=== PATIENT | female | born 2000 | race Caucasian/White ===

== ENCOUNTER 2019-01-05 13:58 | Emergency (ER) | payer OTHER ==
--- NOTE | 2019-01-05 14:35 | ER Document Report ---
ED Medical Screen (RME) - General Chief Complaint: Abdominal Pain Stated Complaint: ABDOMINAL PAIN Time Seen by Provider: 01/05/19 14:33 Mode of Arrival: Ambulatory Information source: Patient Notes: Patient is an otherwise healthy 18-year-old female presented emergency department with left sided abdominal pain. Patient reports this started just a couple of hours prior to arrival. She reports she ate just prior to the pain starting. She states she went to an urgent care where they told her they thought that she needed an ultrasound for her gallbladder. Patient denies any epigastric or right upper quadrant pain. She did report mild nausea but no vomiting or diarrhea. Exam: Tenderness to palpation the left upper quadrant without guarding or rebound. I have greeted and performed a rapid initial assessment of this patient. A comprehensive ED assessment and evaluation of the patient, analysis of test results and completion of the medical decision making process will be conducted by additional ED providers. I have specifically instructed the patient or family members with the patient to immediately return to any nursing staff should anything change in the patient's condition or with their chief complaint. This medical record was dictated with voice recognizing software. There may be grammatical, syntax errors that are unintended. TRAVEL OUTSIDE OF THE [place] IN LAST 30 DAYS: No - Related Data Allergies/Adverse Reactions: amoxicillin Allergy (Verified 01/05/19 14:03) Penicillins Allergy (Verified 01/05/19 14:03) Past Medical History - Social History Chew tobacco use (# tins/day): No Frequency of alcohol use: None Drug Abuse: None Renal/ Medical History: Denies: Hx Peritoneal Dialysis Psychiatric Medical History: Reports: Hx Attention Deficit Hyperactivity Disorder, Hx Depression - anxiety Past Surgical History: Reports: Hx Oral Surgery - wisdom Physical Exam - Vital signs Vitals: Temp Pulse Resp BP Pulse Ox 98.2 F 86 18 142/63 H 98 01/05/19 14:05 01/05/19 14:05 01/05/19 14:05 01/05/19 14:05 01/05/19 14:05 Course - Vital Signs Vital signs: Temp Pulse Resp BP Pulse Ox 98.2 F 86 18 142/63 H 98 01/05/19 14:05 01/05/19 14:05 01/05/19 14:05 01/05/19 14:05 01/05/19 14:05
[2019-01-05 15:00] LABS: ABSOLUTE LYMPHOCYTES (AUTO) 2.2 10^3/uL (0.5-4.7); ABSOLUTE MONOCYTES (AUTO) 0.5 10^3/uL (0.1-1.4); ABSOLUTE NEUT (AUTO) 4.8 10^3/uL (1.7-8.2); BASOPHILS % (AUTO) 0.3 % (0-2); EOSINOPHILS % (AUTO) 0.4 % (0-6); HEMATOCRIT 39.6 % (36.0-47.0); HEMOGLOBIN 13.3 g/dL (12.0-15.5); LYMPHOCYTES % (AUTO) 29.4 % (13-45); MEAN CORPUSCULAR HEMOGLOBIN 29.8 pg (27.0-33.4); MEAN CORPUSCULAR HGB CONC 33.5 g/dL (32.0-36.0); MEAN CORPUSCULAR VOLUME 89 fl (80-97); MONOCYTES % (AUTO) 6.1 % (3-13); PLATELET COUNT 371 10^3/uL (150-450); RED BLOOD COUNT 4.46 10^6/uL (3.72-5.28); RED CELL DISTRIBUTION WIDTH 12.6 % (11.5-14.0); SEGMENTED NEUTROPHILS % (AUTO) 63.8 % (42-78); TOTAL CELLS COUNTED % (AUTO) 100 %; WHITE BLOOD COUNT 7.5 10^3/uL (4.0-10.5)
[2019-01-05 15:04] LABS: APPEARANCE,URINE SLIGHTLY-CLOUDY; BILIRUBIN,URINE NEGATIVE (NEGATIVE); COLOR,URINE YELLOW; GLUCOSE, URINE NEGATIVE (NEGATIVE); KETONES,URINE NEGATIVE (NEGATIVE); LEUKOCYTE ESTERASE,URINE NEGATIVE (NEGATIVE); NITRITE,URINE NEGATIVE (NEGATIVE); PROTEIN,URINE NEGATIVE (NEGATIVE); URINE SPECIFIC GRAVITY 1.024; UROBILINOGEN,URINE NEGATIVE mg/dL (<2.0)
[2019-01-05 15:26] LABS: ALANINE AMINOTRANSFERASE 18 U/L (9-52); ALKALINE PHOSPHATASE 57 U/L (38-126); ANION GAP 9 (5-19); ASPARTATE AMINO TRANSFERASE 27 U/L (14-36); BILIRUBIN,DIRECT 0.2 mg/dL (0.0-0.4); BILIRUBIN,TOTAL 0.3 mg/dL (0.2-1.3); BLOOD UREA NITROGEN 12 mg/dL (7-20); CALCIUM 10.1 mg/dL (8.4-10.2); CARBON DIOXIDE 30 mmol/L (22-30); CHLORIDE 102 mmol/L (98-107); GLUCOSE 117 mg/dL (75-110); LIPASE 89.7 U/L (23-300); POTASSIUM 4.5 mmol/L (3.6-5.0); SODIUM 141.4 mmol/L (137-145); TOTAL PROTEIN 8.3 g/dL (6.3-8.2)
[2019-01-05] MEDS ORDERED: NORMAL SALINE 1000 ML 1,000 ML IV ONE (15:36)
[2019-01-05] MEDS ORDERED: KETOROLAC TROMETHAMINE INJ/PF 30 MG/1 ML SDV IV ONE (15:36)
[2019-01-05] MEDS ORDERED: ONDANSETRON HCL INJ/PF 4 MG/2 ML SDV IV ONE (15:37)
--- NOTE | 2019-01-05 15:44 | ER Document Report ---
ED General - General Chief Complaint: Abdominal Pain Stated Complaint: ABDOMINAL PAIN Time Seen by Provider: 01/05/19 14:33 Mode of Arrival: Ambulatory TRAVEL OUTSIDE OF THE [place] IN LAST 30 DAYS: No - HPI Notes: 18-year-old female to the emergency department with complaints of left upper quadrant abdominal pain that started just prior to arrival after eating lunch at work. States that she ate a chicken sandwich and prior to being completely done with the sandwich she started to experience sharp stabbing pain in her left upper quadrant with associated nausea. She denies any fevers, chills, diarrhea, vomiting, chest pain, shortness of breath. She denies any blood in her urine or history of kidney stones. She states that the pain comes and goes. She has not taken anything for the pain. She did go to urgent care prior to coming to the emergency department and was told that she needed to be seen in the emergency department for further care. She was also told that this could be a gallbladder issue. She denies any right-sided upper abdominal pain, right flank pain, right shoulder pain. - Related Data Allergies/Adverse Reactions: amoxicillin Allergy (Verified 01/05/19 14:03) Penicillins Allergy (Verified 01/05/19 14:03) Past Medical History - General Information source: Patient - Social History Smoking Status: Never Smoker Chew tobacco use (# tins/day): No Frequency of alcohol use: Occasional Drug Abuse: None Family History: Reviewed & Not Pertinent Patient has suicidal ideation: No Patient has homicidal ideation: No Renal/ Medical History: Denies: Hx Peritoneal Dialysis Psychiatric Medical History: Reports: Hx Attention Deficit Hyperactivity Disorder, Hx Depression - anxiety Past Surgical History: Reports: Hx Oral Surgery - wisdom Review of Systems - Review of Systems Constitutional: denies: Chills, Fever EENT: No symptoms reported Cardiovascular: denies: Chest pain, Palpitations, Dizziness, Lightheaded Respiratory: denies: Cough, Short of breath Gastrointestinal: Abdominal pain, Nausea. denies: Diarrhea, Vomiting Genitourinary: denies: Frequency, Hematuria Musculoskeletal: denies: Back pain Skin: No symptoms reported Neurological/Psychological: No symptoms reported -: Yes All other systems reviewed and negative Physical Exam - Vital signs Vitals: Temp Pulse Resp BP Pulse Ox 98.2 F 86 18 142/63 H 98 01/05/19 14:05 01/05/19 14:05 01/05/19 14:05 01/05/19 14:05 01/05/19 14:05 Interpretation: Hypertensive - General General appearance: Appears well, Alert - HEENT Head: Normocephalic, Atraumatic Eyes: Normal Pupils: PERRL - Respiratory Respiratory status: No respiratory distress Chest status: Nontender Breath sounds: Normal Chest palpation: Normal - Cardiovascular Rhythm: Regular Heart sounds: Normal auscultation Murmur: No - Abdominal Inspection: Normal Distension: No: No distension Bowel sounds: Normal Tenderness: Tender - Mild tenderness to palpation over the left lateral mid abdomen. Abdomen is soft no CVA tenderness bilaterally. No tenderness to palpation to the right upper quadrant and right lower quadrant. Negative Hassan sign and negative McBurney's point. No guarding or rebound.. No: McBurney's point, Hassan's sign, Guarding, Rebound Organomegaly: No organomegaly - Back Back: Normal. No: CVA tenderness - Extremities General upper extremity: Normal inspection, Normal strength General lower extremity: Normal inspection, Normal strength - Neurological Neuro grossly intact: Yes Cognition: Normal Orientation: AAOx4 [place] Coma Scale Eye Opening: Spontaneous [place] Coma Scale Verbal: Oriented [place] Coma Scale Motor: Obeys Commands [place] Coma Scale Total: 15 Speech: Normal Motor strength normal: LUE, RUE, LLE, RLE Sensory: Normal - Psychological Associated symptoms: Normal affect, Normal mood - Skin Skin Temperature: Warm Skin Moisture: Dry Skin Color: Normal Course - Re-evaluation Re-evalutation: 01/05/19 17:17 Progress: Patient has done well in the emergency department today. Her labs are reassuringshe has no leukocytosis, no electrode changes, kidney function is within normal limits, she does not have a urinary tract infection, she is not . Reexam of her abdomen illustrates a soft nontender abdomen. She has not been vomiting here in the emergency department. Her KUB is also reassuring for no acute obstructive bowel pattern. Noted mild gas. She has been tolerating Lorrie mist here in the emergency department without any further pain, nausea, vomiting. We will plan to send home. Patient agrees with the plan. Impression: Left upper quadrant abdominal pain, nausea. Will follow the treatment plan as outlined above. Have urged patient to return if she has intractable nausea and vomiting, worsening pain, fever, bloody diarrhea, bloody emesis, syncope, chest pain, shortness of breath. We will have her follow with her primary care physician. We will send home with Michelle. She is agrees with plan. - Vital Signs Vital signs: Temp Pulse Resp BP Pulse Ox 98.2 F 86 18 142/63 H 98 01/05/19 14:05 01/05/19 14:05 01/05/19 14:05 01/05/19 14:05 01/05/19 14:05 - Laboratory Result Diagrams: 01/05/19 14:43 01/05/19 14:43 Laboratory results interpreted by me: 01/05/19 14:43 Glucose 117 H Total Protein 8.3 H Discharge - Discharge Clinical Impression: Abdominal pain, left upper quadrant, Nausea Condition: Stable Disposition: HOME, SELF-CARE Instructions: Abdominal Pain ([facility]) Additional Instructions: ABDOMINAL PAIN: There are many causes of abdominal pain. Pain can mean a serious problem requiring surgery (such as appendicitis). It can also be an innocent problem that goes away on its own (such as a viral infection). Often, time must pass to determine the cause of pain. The physician medical receptionist medical assistant does not feel that hospitalization is necessary, at present. Things may change within the next 24 hours. Call the doctor or come back for re-examination if any problems occur, such as: (1) Pain that becomes more severe, steady, or becomes concentrated in one specific area. Also, pain that is more severe with movement or coughing. (2) Vomiting that persists or becomes more frequent. (3) Blood in the vomitus, urine, or bowel movements. Blood in the stool may have a tarry or black appearance. (4) Shaking chills or fever greater than 100 degrees F. (5) The abdomen becomes more distended or swollen. (6) Bowel movements cease. (7) Failure to improve as expected. NORMAL EXAM AND WORKUP: At this time, your examination and workup show no significant abnormality. No significant abnormal physical findings are noted. All laboratory, EKG, and i maging (x-ray, CT scans, ultrasound) studies that were ordered show no significant abnormality. Although your examination and all studies that were ordered showed no significant abnormal finding, there are no examinations and no studies that are 100% accurate. There is always the possibility that some abnormality could exist and not be detected with physical examination or within the limits and capabilities of laboratory and other studies. You should return or follow up as you were instructed on your visit today for further evaluation if your symptoms do not resolve. TORADOL INJECTION: You have been given an injection of ketorolac tromethamine (Toradol). This is an excellent, safe drug for pain control. It also has potent antiinflammatory action. You should have significant pain relief within about one hour. Toradol is not addicting and is non-sedating. It does not interfere with driving or work. Call or return if you develop itching, hives, shortness of breath, or rash. ANTINAUSEA MEDICATION: You have been given a medication to suppress nausea and vomiting. This type of medication can be given as a shot, pill, or suppository. It will usually last for many hours. Pills and shots usually last six to eight hours, suppositories last about 12 hours. For the typical illness, only one or two doses of the medication may be necessary. Mild lightheadedness may occur. This type of medicine can cause drowsiness. Do not drive or operate dangerous machinery while under its influence. Do not mix with alcohol. See your doctor at once if you have muscle spasms or tightness, or uncontrollable motions (particularly of the neck, mouth, or jaw). Persistent vomiting or severe lightheadedness should also be evaluated by the physician. FOLLOW-UP CARE: If you have been referred to a physician for follow-up care, call the physicians office for an appointment as you were instructed or within the next two days. If you experience worsening or a significant change in your symptoms, notify the physician immediately or return to the Emergency Department at any time for re-evaluation. FOLLOW-UP CARE: You should follow up with PCP for re-evaluation in 24 hours. This follow- up visit is important. Prescriptions: Naproxen [Naprosyn 375 Mg Tablet] 375 mg PO BID #20 tablet Ondansetron HCl [Zofran 4 mg Tablet] 1 - 2 tab PO Q4H PRN #10 tablet PRN Reason: Forms: Return to Work Referrals: DALLAS LOPEZ PA [Primary Care Provider] - Follow up tomorrow
--- NOTE | 2019-01-05 17:10 | RADIOLOGY REPORT (SQ) ---
EXAM DESCRIPTION: ABDOMEN 2 VIEWS COMPLETED DATE/TIME: 01/05/2019 4:52 pm REASON FOR STUDY: abd pain COMPARISON: None. NUMBER OF VIEWS: Two views. TECHNIQUE: Supine and erect/decubitus radiographic images of the abdomen acquired. LIMITATIONS: None. FINDINGS: FREE AIR: None. No abnormal gas collections. LUNG BASES: Clear. BOWEL GAS PATTERN: Nonobstructive pattern. No dilated loops or air fluid levels. CALCIFICATIONS: No suspicious calcifications. SOFT TISSUES: No gross mass or suggestion of organomegaly. HARDWARE: None in the abdomen. BONES: No acute fracture. No worrisome bone lesions. OTHER: No other significant finding. IMPRESSION: NO RADIOGRAPHIC EVIDENCE FOR ACUTE ABDOMINAL DISEASE. TECHNICAL DOCUMENTATION: JOB ID: [id number] [employer]- All Rights Reserved Reading location - IP/workstation name: [email or web address]
[2019-01-05 17:29] VITALS: BP 120/65
== END 2019-01-05 17:38 | disposition home or self-care (01) ==
LOC: ER 13:58
DX: R10.12 Left upper quadrant pain (principal); R11.0 Nausea; Z88.0 Allergy status to penicillin
CPT/HCPCS: 96361; 99284; 96374; 96375; 36415; 83690; 85025; 81025; 80053; 81001; 74019; J1885; J2405; J7030

== ENCOUNTER 2019-11-22 12:10 | Emergency (ER) | payer OTHER ==
[2019-11-22] MEDS ORDERED: ONDANSETRON 4 MG TAB.RAPDIS PO ONE (12:51)
[2019-11-22] MEDS ORDERED: ACETAMINOPHEN 325 MG TABLET PO ONE (12:51)
--- NOTE | 2019-11-22 12:57 | ER Document Report ---
ED General - General Chief Complaint: Chest Pain Stated Complaint: FEVER Time Seen by Provider: 11/22/19 12:34 Primary Care Provider: DALLAS SMILEY PA-C [PHYSICIAN IT INFRASTRUCTURE MANAGER] - Follow up as needed Notes: Patient is a 19-year-old female who presents the emergency department with a chief complaint of malaise, nausea and a small amount of vomiting, and chest pains. TRAVEL OUTSIDE OF THE [place] IN LAST 30 DAYS: No - Related Data Allergies/Adverse Reactions: amoxicillin Allergy (Verified 11/22/19 12:30) Penicillins Allergy (Verified 11/22/19 12:30) Home Medications: lexapro, lamictal, concerta Past Medical History - Social History Smoking Status: Never Smoker Chew tobacco use (# tins/day): No Frequency of alcohol use: None Drug Abuse: None Family History: Reviewed & Not Pertinent Patient has homicidal ideation: No Renal/ Medical History: Denies: Hx Peritoneal Dialysis Psychiatric Medical History: Reports: Hx Attention Deficit Hyperactivity Disorder, Hx Depression - anxiety Past Surgical History: Reports: Hx Oral Surgery - wisdom Review of Systems - Review of Systems Notes: REVIEW OF SYSTEMS: CONSTITUTIONAL : Denies recent illness. Denies recent unintentional weight loss. See HPI. EENT: Denies eye, ear, throat, or mouth pain, discharge, or symptoms. Denies nasal or sinus congestion. CARDIOVASCULAR: See HPI. RESPIRATORY: See HPI. GASTROINTESTINAL: Denies nausea, vomiting, and diarrhea. Denies abdominal pain. Denies constipation. GENITOURINARY: Denies difficulty urinating, burning, blood in urine, urgency or frequency. MUSCULOSKELETAL: Denies neck and back pain. Denies joint pain or swelling. SKIN: Denies rash, itchiness, or lesions HEMATOLOGIC : Denies easy bruising or bleeding. LYMPHATIC: Denies swollen, painful, enlarged glands. NEUROLOGICAL: Denies no numbness or tingling denies weakness. Denies headache. Denies altered mental status. Denies alteration in speech. PSYCHIATRIC: Denies stress, anxiety, alteration in sleep patterns, or depression. All other systems reviewed and negative. Physical Exam - Vital signs Vitals: Resp Pulse Ox 20 100 11/22/19 12:23 11/22/19 12:23 - Notes Notes: PHYSICAL EXAMINATION: GENERAL: Appears well, healthy, well-nourished, no acute distress. HEAD: Normocephalic, atraumatic. EYES: PERRL, conjunctiva normal, all extraocular movements intact, sclera nonicteric ENT: Moist mucous membranes. NECK: Supple, no noticeable swelling, redness, rash. Normal range of motion. LUNGS: Slightly coarse breath sounds noted in bilateral bases. CARDIOVASCULAR: S1-S2, regular rate, regular rhythm. Radial pulses 2+, normal. ABDOMEN: Normoactive bowel sounds. Soft, nontender, no guarding, no rebound tenderness, and no masses palpated. EXTREMITIES: Normal strength and range of motion, no pitting or edema. No cyanosis. NEUROLOGICAL: Moves all extremities upon command. Strength 5/5 in all extremities. PSYCH: Normal mood, normal affect. SKIN: Warm, dry. No rash, lesions, ulcerations noted. Normal skin turgor. Course - Re-evaluation Re-evalutation: 11/22/19 14:06 Patient's chest x-ray is unremarkable. No pneumonia noted. Patient states that she feels better after receiving Zofran and Tylenol. Instructions on how to take Tylenol and Zofran were given at bedside. Patient is in agreement with this plan. I will not retest her for COVID-19, as the patient is already being tested for COVID-19. She will follow-up with her primary care provider as needed. I have a low suspicion for any life-threatening etiology, such as ACS, pulmonary emboli, hemothorax, pneumothorax, or aortic dissection at this time. Vital signs are stable. Follow-up precautions were given. Verbal discharge instructions were given to the patient. They verbalized understanding. They are stable for discharge. - Vital Signs Vital signs: Temp Pulse Resp BP Pulse Ox 98.7 F 15 127/61 H 100 11/22/19 14:29 11/22/19 14:29 11/22/19 14:29 11/22/19 14:29 Discharge - Discharge Clinical Impression: Suspected COVID-19 virus infection Chest pain Qualifiers: Chest pain type: unspecified Qualified Code(s): R07.9 - Chest pain, unspecified Condition: Stable Disposition: HOME, SELF-CARE Additional Instructions: Your seen today in the emergency department for chest pain and generally not feeling well. Your chest x-ray is normal. Take Tylenol 1000 mg every 6 hours as needed for body aches or fever. You can also take Zofran for nausea or vomiting. Please wait for your COVID-19 results. Please make sure you are washing her hands frequently. Follow-up with your primary care provider in regards to this visit. Prescriptions: Ondansetron [Zofran Odt 4 mg Tablet] 1 - 2 tab PO Q4H PRN #30 tab.rapdis PRN Reason: For Nausea/Vomiting Referrals: DALLAS SMILEY PA-C [PHYSICIAN IT INFRASTRUCTURE MANAGER] - Follow up as needed
--- NOTE | 2019-11-22 13:37 | RADIOLOGY REPORT (SQ) ---
EXAM DESCRIPTION: CHEST SINGLE VIEW IMAGES COMPLETED DATE/TIME: 11/22/2019 1:27 pm REASON FOR STUDY: shortness of breath COMPARISON: None. EXAM PARAMETERS: NUMBER OF VIEWS: One view. TECHNIQUE: An AP view of the chest was obtained. RADIATION DOSE: NA LIMITATIONS: None. FINDINGS: LUNGS AND PLEURA: No consolidation, pleural effusion or pneumothorax. MEDIASTINUM AND HILAR STRUCTURES: No mediastinal or hilar contour abnormality. HEART AND VASCULAR STRUCTURES: The cardiac silhouette and pulmonary vasculature are within normal brown its. BONES: No acute findings. HARDWARE: None in the chest. OTHER: No other finding. IMPRESSION: No acute cardiopulmonary process. TECHNICAL DOCUMENTATION: JOB ID: [id number] [employer]- All Rights Reserved Reading location - IP/workstation name: [email or web address]
[2019-11-22 14:35] VITALS: BP 127/61
== END 2019-11-22 14:35 | disposition home or self-care (01) ==
LOC: ER 12:10
DX: R07.9 Chest pain, unspecified (principal); R53.81 Other malaise; R11.2 Nausea with vomiting, unspecified; F32.9 Major depressive disorder, single episode, unspecified; F41.9 Anxiety disorder, unspecified; F90.9 Attention-deficit hyperactivity disorder, unspecified type; Z79.899 Other long term (current) drug therapy; Z20.828 Contact with and (suspected) exposure to other viral communicable diseases; Z88.0 Allergy status to penicillin
CPT/HCPCS: 99283; 71045; S0119

== ENCOUNTER 2020-03-20 17:57 | Emergency (ER) | payer BC, OTHER ==
[2020-03-20] MEDS ORDERED: PROMETHAZINE HCL 25 MG TABLET PO ONE (18:42)
[2020-03-20] MEDS ORDERED: NORMAL SALINE 1000 ML 1,000 ML IV ONE (18:42)
[2020-03-20 19:21] LABS: ABSOLUTE LYMPHOCYTES (AUTO) 1.1 10^3/uL (0.5-4.7); ABSOLUTE MONOCYTES (AUTO) 0.3 10^3/uL (0.1-1.4); ABSOLUTE NEUT (AUTO) 13.6 10^3/uL (1.7-8.2); BASOPHILS % (AUTO) 0.1 % (0-2); HEMATOCRIT 38.5 % (36.0-47.0); HEMOGLOBIN 13.4 g/dL (12.0-15.5); LYMPHOCYTES % (AUTO) 7.2 % (13-45); MEAN CORPUSCULAR HEMOGLOBIN 29.9 pg (27.0-33.4); MEAN CORPUSCULAR HGB CONC 34.7 g/dL (32.0-36.0); MEAN CORPUSCULAR VOLUME 86 fl (80-97); MONOCYTES % (AUTO) 1.8 % (3-13); PLATELET COUNT 359 10^3/uL (150-450); RED BLOOD COUNT 4.46 10^6/uL (3.72-5.28); RED CELL DISTRIBUTION WIDTH 12.6 % (11.5-14.0); SEGMENTED NEUTROPHILS % (AUTO) 90.9 % (42-78); TOTAL CELLS COUNTED % (AUTO) 100 %
[2020-03-20 19:41] LABS: ALBUMIN 4.8 g/dL (3.5-5.0); ALKALINE PHOSPHATASE 90 U/L (38-126); ANION GAP 11 (5-19); ASPARTATE AMINO TRANSFERASE 23 U/L (14-36); BILIRUBIN,DIRECT 0.2 mg/dL (0.0-0.4); BILIRUBIN,TOTAL 0.5 mg/dL (0.2-1.3); BLOOD UREA NITROGEN 4 mg/dL (7-20); CALCIUM 9.8 mg/dL (8.4-10.2); CARBON DIOXIDE 23 mmol/L (22-30); CHLORIDE 104 mmol/L (98-107); GLUCOSE 121 mg/dL (75-110); TOTAL PROTEIN 7.8 g/dL (6.3-8.2)
--- NOTE | 2020-03-20 20:04 | ER Document Report ---
ED General - General Chief Complaint: Vomiting/Diarrhea Stated Complaint: VOMITING,NAUSEA,DIARRHEA Time Seen by Provider: 03/20/20 18:39 Primary Care Provider: JANNA ELLER MD [Primary Care Provider] - Follow up as needed TRAVEL OUTSIDE OF THE [place] IN LAST 30 DAYS: No - HPI Notes: 19-year-old female presents with nausea, vomiting and diarrhea. Patient reports daily nausea and vomiting every day for the past month. She states that she typically wakes up around 6 AM, she will have 1 hour of vomiting, then "is fine". She states she attributed this to her anxiety. She has been having diarrhea, described as soft stools, occasionally liquidy. No emesis in blood or stools. She states that her vomit is a yellow color. She denies abdominal pain. She states that today started off like her typical day, however the nausea vomiting has persisted throughout the entire day. She states that she went to an urgent care and "nothing was done" for her, on further discussion she states that she received Zofran, Phenergan and fluids. She denies possibly being . She denies dysuria. She denies drug or alcohol use. - Related Data Allergies/Adverse Reactions: amoxicillin Allergy (Verified 11/22/19 12:30) Penicillins Allergy (Verified 11/22/19 12:30) Past Medical History - General Information source: Patient - Social History Smoking Status: Unknown if Ever Smoked Family History: Reviewed & Not Pertinent Renal/ Medical History: Denies: Hx Peritoneal Dialysis Psychiatric Medical History: Reports: Hx Attention Deficit Hyperactivity Disorder, Hx Depression - anxiety Past Surgical History: Reports: Hx Oral Surgery - wisdom Review of Systems - Review of Systems Constitutional: denies: Chills, Fever EENT: No symptoms reported Cardiovascular: denies: Chest pain Respiratory: denies: Short of breath Gastrointestinal: Diarrhea, Nausea, Vomiting. denies: Abdominal pain, Blood streaked bowels, Blood in vomit Genitourinary: denies: Dysuria Musculoskeletal: No symptoms reported Skin: No symptoms reported Neurological/Psychological: Anxiety Physical Exam - Vital signs Vitals: Temp Pulse Resp BP Pulse Ox 99.2 F 106 H 18 147/74 H 100 03/20/20 18:48 03/20/20 18:48 03/20/20 18:48 03/20/20 18:48 03/20/20 18:48 - General General appearance: Appears well, Alert - HEENT Head: Normocephalic, Atraumatic Eyes: No: Scleral icterus Pupils: PERRL - Respiratory Breath sounds: Normal - Cardiovascular Rhythm: Regular Heart sounds: Normal auscultation Normal capillary refill: Yes - Abdominal Inspection: Normal Distension: No distension Bowel sounds: Normal Tenderness: Nontender - Extremities General upper extremity: Normal ROM General lower extremity: Normal ROM - Neurological Neuro grossly intact: Yes Cognition: Normal Orientation: AAOx4 - Psychological Associated symptoms: Anxious - Skin Skin Temperature: Warm Course - Re-evaluation Re-evalutation: 19-year-old female here with N/V/D ongoing for the past month, prolonged symptoms today. On exam she is nontoxic-appearing, afebrile, abdomen is soft and I do not appreciate focal area of tenderness. There is no jaundice. She do es appear to be anxious, question if this is contributing to her symptoms. Given that has been going on for 1 month, would have a low suspicion for acute infectious etiology. May be some sort of functional component. She received fluids and oral Phenergan through the triage process. Would have a low suspicion for biliary etiology, however will obtain right upper quadrant ultrasound to rule out cholelithiasis or common bile duct dilation. 03/20/20 21:07 Leukocytosis present, question if this is reactionary. No acute anemia. Electrolytes are within normal limits. Creatinine is within normal limits. No elevation of T bili, LFTs or lipase to suggest acute hepatobiliary pathology or pancreatitis at this time. is negative. Urine does have 3+ bacteria and small leuk esterase, nitrates are negative. Given that she denies urinary symptoms, will send for culture and she can be treated if culture is positive. Additionally has high ketones, D5 LR bolus ordered. 03/20/20 22:08 Right upper quadrant ultrasound negative per radiology 03/20/20 22:13 Into reassess patient, she reports she is feeling much better. She appears improved as well. Updated her on results so far. D5LR being hung now. 03/21/20 00:02 Fluids have finished. Patient reports still feeling good and is ready go home. Will prescribe Phenergan. Return precautions given, stable time of discharge. - Vital Signs Vital signs: Temp Pulse Resp BP Pulse Ox 99.2 F 100 18 120/72 98 03/20/20 23:40 03/20/20 23:40 03/20/20 23:40 03/20/20 23:40 03/20/20 23:40 - Laboratory Result Diagrams: 03/20/20 19:10 03/20/20 19:10 Laboratory results interpreted by me: 03/20/20 03/20/20 03/20/20 19:05 19:10 19:10 WBC 15.0 H Lymph % (Auto) 7.2 L [place] % (Auto) 1.8 L Absolute Neuts (auto) 13.6 H Seg Neutrophils % 90.9 H BUN 4 L Creatinine 0.49 L Glucose 121 H Urine Protein 30 H Urine Ketones 80 H Ur Leukocyte Esterase SMALL H Urine Ascorbic Acid 40 H - Diagnostic Test Radiology reviewed: Image reviewed, Reports reviewed Discharge - Discharge Clinical Impression: Nausea and vomiting Qualifiers: Vomiting type: unspecified Vomiting Intractability: non-intractable Qualified Code(s): R11.2 - Nausea with vomiting, unspecified Condition: Stable Disposition: HOME, SELF-CARE Instructions: Antinausea Medication ([facility]) Additional Instructions: Use Phenergan as needed for nausea. Diet as tolerated, try to drink plenty of fluids. Follow-up with your primary care doctor. Return to the emergency department for any concerning worsening symptoms. Prescriptions: Promethazine HCl [Phenergan 25 mg Tablet] 25 mg PO Q6H PRN #20 tablet PRN Reason: For Nausea/Vomiting Referrals: JANNA ELLER MD [Primary Care Provider] - Follow up as needed
[2020-03-20 20:32] LABS: APPEARANCE,URINE CLOUDY; BILIRUBIN,URINE NEGATIVE (NEGATIVE); COLOR,URINE YELLOW; GLUCOSE, URINE NEGATIVE (NEGATIVE); KETONES,URINE 80 mg/dL (NEGATIVE); LEUKOCYTE ESTERASE,URINE SMALL (NEGATIVE); NITRITE,URINE NEGATIVE (NEGATIVE); PROTEIN,URINE 30 mg/dL (NEGATIVE); URINE SPECIFIC GRAVITY 1.021; UROBILINOGEN,URINE NEGATIVE mg/dL (<2.0)
[2020-03-20] MEDS ORDERED: DEXTROSE 5%-LACTATED RINGERS 1,000 ML IV ONE (20:56)
--- NOTE | 2020-03-20 21:58 | RADIOLOGY REPORT (SQ) ---
US ABDOMEN LIMITED HISTORY: Right upper quadrant pain. COMPARISON: None. TECHNIQUE: Grayscale and color Doppler imaging of the right upper quadrant was performed. FINDINGS: There is increased echogenicity of the hepatic parenchyma, likely representing hepatic steatosis. The main portal vein has normal hepatopetal flow. No shadowing gallstones are seen. No pericholecystic fluid or gallbladder wall thickening. The common bile duct is normal caliber. The visualized portions of the pancreas are unremarkable. No hydronephrosis or shadowing renal stones are identified. The right kidney is normal in size. The visualized portions of the IVC and aorta are patent. IMPRESSION: 1. No gallstones or cholecystitis. 2. Hepatic steatosis.
[2020-03-20 22:07] LABS: URINE AMPHETAMINES SCREEN NEGATIVE; URINE BARBITURATES SCREEN NEGATIVE; URINE BENZODIAZEPINES SCREEN NEGATIVE; URINE COCAINE SCREEN NEGATIVE; URINE MARIJUANA (THC) SCREEN NEGATIVE; URINE METHADONE SCREEN NEGATIVE; URINE PHENCYCLIDINE SCREEN NEGATIVE
[2020-03-20 23:42] VITALS: BP 120/72
== END 2020-03-21 00:19 | disposition home or self-care (01) ==
LOC: ER 17:57
DX: R11.2 Nausea with vomiting, unspecified (principal); R19.7 Diarrhea, unspecified; Z88.0 Allergy status to penicillin
CPT/HCPCS: 99285; 96360; 96361; 36415; 87086; 83690; 84703; 85025; 80053; 81001; 80307; 76705; J7121; J7030

== ENCOUNTER 2020-07-04 17:56 | Observation (INO) | payer BC ==
--- NOTE | 2020-07-04 20:52 | ER Document Report ---
ED Medical Screen (RME) - General Chief Complaint: Abdominal Pain Stated Complaint: LOWER ABDOMINAL PAIN Time Seen by Provider: 07/04/20 20:43 Primary Care Provider: JANNA ELLER MD [Primary Care Provider] - Follow up as needed Mode of Arrival: Ambulatory Information source: Patient Notes: HPI; 20-year-old female presents to the emergency room complaining of sudden onset of lower pelvic pain that started earlier today. States she has a history of ovarian cyst feels similar to that. States she took some leftover Vicodin with relief of symptoms. Complains of nausea but no vomiting. States has had 2-3 episodes of diarrhea today. Denies any COVID-19 exposure. States she currently has an IUD. PE: Alert and oriented x3. Lungs: Clear to auscultation without rales, rhonchi, wheezes. Heart: Regular rate rhythm without murmurs, rubs, gallops. I have greeted and performed a rapid initial assessment of this patient. A comprehensive ED assessment and evaluation of the patient, analysis of test results and completion of the medical decision making process will be conducted by additional ED providers. I have specifically instructed the patient or fami ly members with the patient to immediately return to any nursing staff should anything change in the patient's condition or with their chief complaint. TRAVEL OUTSIDE OF THE [place] IN LAST 30 DAYS: No - Related Data Allergies/Adverse Reactions: amoxicillin Allergy (Verified 07/04/20 20:43) Penicillins Allergy (Verified 07/04/20 20:43) Home Medications: prozac Past Medical History - Social History Frequency of alcohol use: None Renal/ Medical History: Denies: Hx Peritoneal Dialysis Psychiatric Medical History: Reports: Hx Attention Deficit Hyperactivity Disorder, Hx Depression - anxiety Past Surgical History: Reports: Hx Oral Surgery - wisdom Physical Exam - Vital signs Vitals: Temp Pulse Resp BP Pulse Ox 98.8 F 93 16 117/43 L 100 07/04/20 18:23 07/04/20 18:23 07/04/20 18:23 07/04/20 18:23 07/04/20 18:23 Course - Vital Signs Vital signs: Temp Pulse Resp BP Pulse Ox 98.8 F 93 16 117/43 L 100 07/04/20 18:23 07/04/20 18:23 07/04/20 18:23 07/04/20 18:23 07/04/20 18:23 Doctor's Discharge - Discharge Referrals: JANNA ELLER MD [Primary Care Provider] - Follow up as needed
[2020-07-04 22:07] LABS: APPEARANCE,URINE CLEAR; BILIRUBIN,URINE NEGATIVE (NEGATIVE); COLOR,URINE YELLOW; GLUCOSE, URINE NEGATIVE (NEGATIVE); KETONES,URINE 80 mg/dL (NEGATIVE); LEUKOCYTE ESTERASE,URINE NEGATIVE (NEGATIVE); NITRITE,URINE NEGATIVE (NEGATIVE); PROTEIN,URINE NEGATIVE (NEGATIVE); UROBILINOGEN,URINE NEGATIVE mg/dL (<2.0)
[2020-07-04 22:11] LABS: ABSOLUTE LYMPHOCYTES (AUTO) 3.7 10^3/uL (0.5-4.7); ABSOLUTE MONOCYTES (AUTO) 0.6 10^3/uL (0.1-1.4); ABSOLUTE NEUT (AUTO) 10.7 10^3/uL (1.7-8.2); BASOPHILS % (AUTO) 0.3 % (0-2); EOSINOPHILS % (AUTO) 0.1 % (0-6); HEMATOCRIT 37.8 % (36.0-47.0); LYMPHOCYTES % (AUTO) 24.6 % (13-45); MEAN CORPUSCULAR HEMOGLOBIN 29.8 pg (27.0-33.4); MEAN CORPUSCULAR HGB CONC 34.5 g/dL (32.0-36.0); MEAN CORPUSCULAR VOLUME 86 fl (80-97); MONOCYTES % (AUTO) 4.2 % (3-13); PLATELET COUNT 394 10^3/uL (150-450); RED BLOOD COUNT 4.38 10^6/uL (3.72-5.28); RED CELL DISTRIBUTION WIDTH 12.7 % (11.5-14.0); SEGMENTED NEUTROPHILS % (AUTO) 70.8 % (42-78); TOTAL CELLS COUNTED % (AUTO) 100 %; WHITE BLOOD COUNT 15.1 10^3/uL (4.0-10.5)
[2020-07-04 22:30] LABS: ALBUMIN 4.7 g/dL (3.5-5.0); ALKALINE PHOSPHATASE 99 U/L (38-126); ANION GAP 10 (5-19); ASPARTATE AMINO TRANSFERASE 24 U/L (14-36); BILIRUBIN,DIRECT 0.2 mg/dL (0.0-0.4); BILIRUBIN,TOTAL 0.5 mg/dL (0.2-1.3); BLOOD UREA NITROGEN 5 mg/dL (7-20); CALCIUM 9.9 mg/dL (8.4-10.2); CARBON DIOXIDE 24 mmol/L (22-30); CHLORIDE 102 mmol/L (98-107); GLUCOSE 108 mg/dL (75-110); POTASSIUM 3.9 mmol/L (3.6-5.0)
--- NOTE | 2020-07-04 22:37 | RADIOLOGY REPORT (SQ) ---
Ultrasound pelvis transvaginal on 07/04/2020 at 9:29 PM CLINICAL INDICATION: Pelvic pain COMPARISON: None FINDINGS: Multiple sonographic images are obtained throughout the pelvis by transvaginal approach, both transverse and sagittal images are obtained. Uterus measures approximately 7.1 x 3.3 x 4.5 cm. Endometrial stripe measures 4 mm which is within normal limits. Intrauterine device is noted in good position in the endometrium. Uterine myometrium appears homogeneous. The right ovary measures approximately 3.1 x 2.6 x 2.1 cm. Flow is demonstrated in the right ovary. Left ovary measures approximately 2.5 x 1.6 x 1.7 cm. Flow is demonstrated in the left ovary. No adnexal mass or fluid collection is noted. IMPRESSION: Unremarkable exam.
[2020-07-05] MEDS ORDERED: NORMAL SALINE 1000 ML 1,000 ML IV ONE ×2 (01:42→08:27)
[2020-07-05] MEDS ORDERED: ONDANSETRON HCL INJ/PF 4 MG/2 ML SDV IV ONE ×2 (01:42→07:39)
[2020-07-05] MEDS ORDERED: MORPHINE SULFATE 10 MG/ML INJ IV ONE (01:42)
--- NOTE | 2020-07-05 01:50 | ER Document Report ---
ED GI/ - General Chief Complaint: Abdominal Pain Stated Complaint: LOWER ABDOMINAL PAIN Time Seen by Provider: 07/04/20 20:43 Mode of Arrival: Ambulatory Information source: Patient Notes: 20-year-old female presented to ED for complaint of right lower quadrant abdominal pain that started earlier today. She states she has a history of ovarian cyst but it does not feel exactly like an ovarian cyst. She states she took leftover Vicodin which usually gives her relief but this only gave her partial relief. She states she has had nausea but no vomiting but she has had several episodes of diarrhea. She denies any Covid symptoms. She states she does have an IUD. She was seen in triage blood urine and ultrasound were completed she does not have a right ovarian cyst. She does have an elevated white count. I have ordered her IV fluids Zofran and morphine IV. I have also ordered her IV fluids and a CT IV and oral contrasted of the abdomen and pelvis. Patient is agreeable with this plan. Constitutional: Negative for fever. HENT: Negative for sore throat. Eyes: Negative for visual changes. Cardiovascular: Negative for chest pain. Respiratory: Negative for shortness of breath. Gastrointestinal: Right lower quadrant pain with nausea no vomiting and 2 episodes of diarrhea Genitourinary: Negative for dysuria. Musculoskeletal: Negative for back pain. Skin: Negative for rash. Neurological: Negative for headaches, weakness or numbness. 10 point ROS negative except as marked above and in HPI. VITAL SIGNS: Within normal limits. GENERAL: No acute distress, non-toxic appearance. HEAD: Normal with no signs of head trauma. EYES: PERRLA, EOMI, conjunctiva normal, no discharge. EARS: Hearing grossly intact. NOSE: Normal. THROAT: Oropharynx is normal. NECK: Normal range of motion, no tenderness, supple, no lymphadenopathy, No adenopathy, no JVD. CHEST: Clear breath sounds bilaterally. No wheezes, rales, or rhonchi. CARDIAC: Regular rate and rhythm. S1 and S2, without murmurs, gallops, or rubs. VASCULAR: No Edema. Peripheral pulses normal and equal in all extremities. ABDOMEN: Soft with significant right lower quadrant tenderness. Active bowel sounds GASTROINTESTINAL: Bowel sounds normal GENITOURINARY: Normal, No tenderness LYMPATHTIC: No lymphadenopathy noted. MUSCULOSKELETAL: Good range of motion of all major joints. Extremities without clubbing, cyanosis or edema. NEUROLOGICAL: Alert and oriented x 3. No focal sensory or strength deficits. Speech normal. Follows commands appropriately. PSYCHIATRIC: Normal Affect, judgement and mood. SKIN: Normal appearance with no rashes or lesions. TRAVEL OUTSIDE OF THE [place] IN LAST 30 DAYS: No - HPI Patient complains to provider of: Abdominal pain, Diarrhea Onset: This morning Timing/Duration: Intermittent Quality of pain: Cramping, Sharp Pain Level: 2 Location: RLQ Vaginal bleeding (Compared to normal period): None Associated symptoms: Diarrhea, Nausea Exacerbated by: Movement Relieved by: Denies Similar symptoms previously: No Recently seen / treated by doctor: No - Related Data Allergies/Adverse Reactions: amoxicillin Allergy (Verified 07/04/20 20:43) Penicillins Allergy (Verified 07/04/20 20:43) Home Medications: prozac Past Medical History - General Information source: Patient - Social History Smoking Status: Never Smoker Frequency of alcohol use: Social Drug Abuse: None Occupation: [employer] Lives with: Family Family History: Reviewed & Not Pertinent Patient has homicidal ideation: No - Past Medical History Cardiac Medical History: Reports: None Pulmonary Medical History: Reports: None EENT Medical History: Reports: None Neurological Medical History: Reports: None Renal/ Medical History: Reports: Hx Ovarian Cysts Malignancy Medical History: Reports: None GI Medical History: Reports: None Musculoskeletal Medical History: Reports None Skin Medical History: Reports None Psychiatric Medical History: Reports: Hx Attention Deficit Hyperactivity Disorder, Hx Depression - anxiety Traumatic Medical History: Reports: None Infectious Medical History: Reports: None Past Surgical History: Reports: Hx Oral Surgery - wisdom - Immunizations Immunizations up to date: Yes Physical Exam - Vital signs Vitals: Temp Pulse Resp BP Pulse Ox 98.8 F 93 16 117/43 L 100 07/04/20 18:23 07/04/20 18:23 07/04/20 18:23 07/04/20 18:23 07/04/20 18:23 Course - Re-evaluation Re-evalutation: 07/05/20 09:17 Patient had right lower quadrant abdominal pain throughout her shift. She was treated when I first examined her with morphine and Zofran and IV fluids. She was ordered a CT abdomen pelvis with IV and oral contrast. When I did reassess the patient after her morphine she stated she was feeling much better. This morning I spoke with the patient and she said she had had pain off and on throughout the night but she did not let anyone know because she did not want to bother anybody. She did have her CT abdomen pelvis completed which was negative for any acute process but she still had severe right lower quadrant tenderness to palpation. Her transvaginal ultrasound was negative but her white count was elevated. Did call Dr. Gilmore the surgeon he can did come down and examined the patient is stated that she did appear to have appendicitis even though the CT was negative. He did speak with Dr. Allan Kennedy concerning the fact that the patient did have a IUD. The IUD appeared normal on the ultrasound and Dr. Gilmore did discuss this with Dr. Anderson Kennedy. Dr. Skinner stated he would take the patient to surgery for an appendectomy. She was admitted to surgical. - Vital Signs Vital signs: Temp Pulse Resp BP Pulse Ox 98.8 F 93 16 117/43 L 100 07/04/20 18:23 07/04/20 18:23 07/04/20 18:23 07/04/20 18:23 07/04/20 18:23 - Laboratory Results Result Diagrams: 07/04/20 22:02 07/04/20 22:02 Laboratory Results Interpreted: 07/04/20 07/04/20 07/04/20 21:20 22:02 22:02 WBC 15.1 H Absolute Neuts (auto) 10.7 H Sodium 135.6 L BUN 5 L Urine Ketones 80 H Critical Laboratory Results Reviewed: No Critical Results - Radiology Results Critical Radiology Results Reviewed: No Critical Results Discharge - Discharge Clinical Impression: Right lower quadrant abdominal pain Disposition: ADMITTED INPATIENT Admitting Provider: Surgicalist Unit Admitted: OR
--- NOTE | 2020-07-05 04:56 | RADIOLOGY REPORT (SQ) ---
CLINICAL HISTORY: Right lower quadrant pain. HCG NEG COMPARISON: None. TECHNIQUE: CT ABDOMEN PELVIS WITH IV CONTRAST on 07/05/2020 1:41 AM FINANCIAL ADVISER This exam was performed according to our departmental dose-optimization program, which includes automated exposure control, adjustment of the mA and/or kV according to patient size and/or use of iterative reconstruction technique. FINDINGS: Lower lungs are clear. Abdomen: The liver is normal in appearance. There is no biliary dilatation. Gallbladder is normal in appearance. The pancreas and spleen are normal in appearance. The adrenal glands and kidneys are unremarkable. Abdominal aorta is normal in course and caliber without aneurysm. There is no free air. There is no retroperitoneal adenopathy. Pelvis: There is no bowel obstruction. Urinary bladder is unremarkable. There is small amount of free pelvic fluid. Uterus is normal in size. Appendix is normal. IUD is present. Skeleton: There are no acute osseous findings. No suspicious bony lesions. IMPRESSION: No definite acute inflammatory process.
[2020-07-05] MEDS ORDERED: CEFTRIAXONE 1 GM/D5W RTU 1 GM/50 ML RTUPB IV ONE (08:25)
[2020-07-05] MEDS ORDERED: CLINDAMYCIN 600 MG/D5W RTU 600 MG/50 ML RTUPB IV ONE (08:25)
--- NOTE | 2020-07-05 08:37 | PDOC H&P ---
History of Present Illness Admission Date/PCP: ISHA ROSSI Patient complains of: Right lower quadrant pain History of Present Illness: ERNESTINE NG is a 20 year old female, with history of depression, who presents emergency room complaining of periumbilical pain which occurred yesterday which shift to the right lower quadrant with intense nausea, anorexia, no change of bowel status, no fever chills, no hematemesis or hematochezia. Past Medical History Cardiac Medical History: Reports: None Pulmonary Medical History: Reports: None EENT Medical History: Reports: None Neurological Medical History: Reports: None Malignancy Medical History: Reports: None GI Medical History: Reports: None Musculoskeltal Medical History: Reports: None Skin Medical History: Reports: None Psychiatric Medical History: Reports: Attention Deficit Hyperactivity Disorder, Depression - anxiety Traumatic Medical History: Reports: None Infectious Medical History: Reports: None Social History Lives with: Family Smoking Status: Never Smoker Family History Family History: Reviewed & Not Pertinent Parental Family History Reviewed: No Children Family History Reviewed: No Sibling(s) Family History Reviewed.: No Medication/Allergy Home Medications: Naproxen [Naprosyn 375 Mg Tablet] 375 mg PO BID #20 tablet 01/05/19 Ondansetron HCl [Zofran 4 mg Tablet] 1 - 2 tab PO Q4H PRN #10 tablet 01/05/19 Ondansetron [Zofran Odt 4 mg Tablet] 1 - 2 tab PO Q4H PRN #30 tab.rapdis 11/22/19 Promethazine HCl [Phenergan 25 mg Tablet] 25 mg PO Q6H PRN #20 tablet 03/21/20 Allergies/Adverse Reactions: amoxicillin Allergy (Verified 07/04/20 20:43) Penicillins Allergy (Verified 07/04/20 20:43) Physical Exam Vital Signs: Temp Pulse Resp BP Pulse Ox 98.8 F 93 16 117/43 L 100 07/04/20 18:23 07/04/20 18:23 07/04/20 18:23 07/04/20 18:23 07/04/20 18:23 Intake & Output 07/04/20 07/05/20 07/06/20 06:59 06:59 06:59 Weight 86.8 kg General appearance: PRESENT: mild distress, obese, well-developed Head exam: PRESENT: atraumatic Eye exam: PRESENT: EOMI Mouth exam: PRESENT: dry mucosa, neck supple Neck exam: PRESENT: full ROM Respiratory exam: PRESENT: clear to auscultation aleks Cardiovascular exam: PRESENT: RRR GI/Abdominal exam: PRESENT: hypoactive bowel sounds, soft, tenderness - Right lower quadrant with guarding Rectal exam: PRESENT: deferred Extremities exam: PRESENT: full ROM Musculoskeletal exam: PRESENT: full ROM Neurological exam: PRESENT: alert, awake, oriented to situation, CN II-XII grossly intact Psychiatric exam: PRESENT: appropriate affect Skin exam: PRESENT: warm Results Laboratory Results: 07/04/20 22:02 07/04/20 22:02 07/04/20 07/04/20 07/04/20 21:20 22:02 22:02 WBC 15.1 H RBC 4.38 Hgb 13.0 Hct 37.8 MCV 86 MCH 29.8 MCHC 34.5 RDW 12.7 Plt Count 394 Seg Neutrophils % 70.8 Sodium 135.6 L Potassium 3.9 Chloride 102 Carbon Dioxide 24 Anion Gap 10 BUN 5 L Creatinine 0.56 Est GFR ( Amer) > 60 Glucose 108 Calcium 9.9 Total Bilirubin 0.5 AST 24 Alkaline Phosphatase 99 Total Protein 8.0 Albumin 4.7 Serum HCG, Qual Urine Color YELLOW Urine Appearance CLEAR Urine pH 6.0 Ur Specific [place] 1.020 Urine Protein NEGATIVE Urine Glucose (UA) NEGATIVE Urine Ketones 80 H Urine Blood NEGATIVE Urine Nitrite NEGATIVE Ur Leukocyte Esterase NEGATIVE Urine WBC (Auto) 2 Urine RBC (Auto) 2 07/04/20 22:02 WBC RBC Hgb Hct MCV MCH MCHC RDW Plt Count Seg Neutrophils % Sodium Potassium Chloride Carbon Dioxide Anion Gap BUN Creatinine Est GFR ( Amer) Glucose Calcium Total Bilirubin AST Alkaline Phosphatase Total Protein Albumin Serum HCG, Qual NEGATIVE Urine Color Urine Appearance Urine pH Ur Specific [place] Urine Protein Urine Glucose (UA) Urine Ketones Urine Blood Urine Nitrite Ur Leukocyte Esterase Urine WBC (Auto) Urine RBC (Auto) Impressions: Transvaginal US 07/04/20 20:47 IMPRESSION: Unremarkable exam. Abdomen/Pelvis CT 07/05/20 01:41 IMPRESSION: No definite acute inflammatory process. Assessment & Plan - Time Anticipated Discharge Disposition: Home, Self Care Anticipated Discharge Timeframe: within 48 hours - Plan Summary Plan Summary: Assessment: 20-year-old female with a 24-hour history of periumbilical pain and right lower quadrant pain Leukocytosis 15,000 CT scan abdomen pelvis significant for free intraperitoneal fluid with no other significant findings Endovaginal ultrasound reveals no abnormalities with IUD in good position within the endometrial canal Phone conversation conversation with the title i teacher oncology radiation physician Dr. Kennedy was entertained; due to the normal appearance of the IUD under ultrasound the title i teacher rules out the possibility that the patient symptoms and CT findings may be due to a malpositioned IUD Therefore, it appears the patient may be suffering from acute appendicitis due to anorexia, pinpoint tenderness, abdominal pain shifting from the periumbilical to the right lower quadrant, and free fluid in the pelvis Plan: N.p.o. IV fluids (normal saline 1 L bolus then normal saline 150 mL/h) Rocephin 1 g IV Clindamycin 600 IV Laparoscopic appendectomy possible open this morning. Procedure, risks, benefits, complications, alternatives, explained to the patient, she understands all the above, her questions were answered, and she decides to proceed Patient will be admitted afterward
[2020-07-05] MEDS ORDERED: BUPIVACAINE HCL 0.5%-EPI 1:200000 INJ/PF 30 ML VIAL ONE (11:30)
[2020-07-05] MEDS ORDERED: FENTANYL CITRATE INJ/PF 250 MCG/5 ML AMPULE ONE (11:53)
[2020-07-05] MEDS ORDERED: PROPOFOL INJ 200 MG/20 ML VIAL IV ONE (11:54)
[2020-07-05] MEDS ORDERED: MIDAZOLAM 2 MG/2 ML INJ ONE (11:54)
[2020-07-05] MEDS ORDERED: PROMETHAZINE HCL INJ 25 MG/1 ML VIAL IV PRN ×4 (13:11→13:30)
[2020-07-05] MEDS ORDERED: MEPERIDINE HCL/PF INJ 25 MG/1 ML DISP.SYRIN IV PRN ×2 (13:11→13:30)
[2020-07-05] MEDS ORDERED: FENTANYL CITRATE INJ/PF 100 MCG/2 ML AMPUL IV PRN ×6 (13:11→13:30)
[2020-07-05] MEDS ORDERED: DIPHENHYDRAMINE HCL 50 MG/ML VIAL IV PRN ×2 (13:11→13:30)
[2020-07-05] MEDS ORDERED: OXYCODONE-ACETAMINOPHEN 5-325 MG TABLET PO PRN ×4 (13:11→13:30)
[2020-07-05] MEDS ORDERED: NORMAL SALINE 1000 ML 1,000 ML IV PRN (13:29)
[2020-07-05] MEDS ORDERED: ONDANSETRON HCL INJ/PF 4 MG/2 ML SDV IV PRN (13:29)
--- NOTE | 2020-07-05 13:29 | Operative Report ---
Operative Report DATE OF SURGERY: 07/05/20 PREOPERATIVE DIAGNOSIS: RLQ abdominal pain; leukocytosis POSTOPERATIVE DIAGNOSIS: same, normal appendix, large (5 cm) right ovarian cyst OPERATION: diagnostic laparoscopy, appendectomy, right ovarian cyst drainage SURGEON: CARRI MORAN ANESTHESIA: GA - 20 mL 1% lidocaine TISSUE REMOVED OR ALTERED: Appendix, drainage of right ovarian cyst COMPLICATIONS: None ESTIMATED BLOOD LOSS: Negligible INTRAOPERATIVE FINDINGS: Normal appendix, large 5 cm right ovarian cyst PROCEDURE: The procedure was done in the operating room. The patient was placed in a supine position, general anesthesia induced by endotracheal intubation, the abdomen was prepped and draped in usual fashion. An incision was made just above the umbilicus with a #15 blade, the skin was tented with towel clips and a 5 mm port with Optiview adapter and scope were inserted through the abdominal wall into the peritoneal cavity. After they CO2 pneumoperitoneum was obtained, under direct visualization a 5 mm report was inserted in the right lateral quadrant of the abdomen following skin incision. The scope was removed from the umbilical port and inserted into the right side port. The 5 mm umbilical port was removed and replaced with a 12 mm port, while the 5 mm port was inserted in left lower quadrant of the abdomen following skin incision. The patient was placed in steep Trendelenburg position with the right side elevated. The appendix was then identified by tracing the anterior tenia of the cecum, the appendix was then found to be normal without inflammation or perforation. The appendix was elevated and stretched. The mesentery of the appendix was divided with the LigaSure. The appendix was stapled at the base with an Endo JOSELINE stapler, extracted from the peritoneal cavity with an Endobag through the umbilical port. The pneumoperitoneum was then re-established, the stapled line was examined and found to be intact. Diagnostic laparoscopy was performed by evaluation of the cecum, terminal ileum, rectosigmoid colon and pelvis. A small amount of the serous type peritoneal fluid that was identified in the pelvis, the uterus and ovaries as well as the tubes were within the normal limits. At this point, intraoperative consultation with the entertainment director on-call Dr. Kennedy was obtained. He did not scrub in but observed the examination of the female organs which were found to be normal. However, further evaluation of the right ovary revealed a large 5 cm benign cyst, under the guidance of Dr. Kennedy this was opened with scissors in a small amount of serous fluid was obtained. This was completely aspirated while the cyst itself was left in place without being further manipulated. The umbilical fascial defect was closed with a [id number] 0 Vicryl suture, placed with a fascia closure device under direct visualization and left untied. All instruments were removed, the pneumoperitoneum was released, and all ports were removed. The umbilical fascial defect was closed with the previously placed [id number] 0 Vicryl suture, all skin incisions were closed with a 4-0 PDS running subcuticular suture, and covered with Dermabond. The patient tolerated the procedure well, was extubated, and transferred to the recovery room in satisfactory conditions.
[2020-07-05] MEDS ORDERED: FENTANYL CITRATE INJ/PF 100 MCG/2 ML AMPUL ONE (13:36)
[2020-07-05] MEDS ORDERED: FENTANYL CITRATE INJ/PF 50 MCG/1 ML 50 ML SDV IV ONE (13:39)
[2020-07-05] MEDS ORDERED: FENTANYL CITRATE INJ/PF 100 MCG/2 ML AMPUL IV ONE ×2 (13:39→13:45)
[2020-07-05] MEDS ORDERED: FAMOTIDINE INJ/PF 20 MG/2 ML SDV IV SCH (13:45)
[2020-07-05] MEDS ORDERED: DOCUSATE SODIUM 100 MG CAPSULE PO SCH (14:00)
[2020-07-05] MEDS ORDERED: LIDOCAINE 2% INJ-PF (20 MG/ML) 2 ML AMPUL ONE (14:59)
[2020-07-05] MEDS ORDERED: KETOROLAC TROMETHAMINE 60 MG/2 ML SDV ONE (14:59)
[2020-07-05] MEDS ORDERED: NEOSTIGMINE METHYLSULFATE 10 MG/10 ML VIAL ONE (14:59)
[2020-07-05] MEDS ORDERED: GLYCOPYRROLATE 1 MG/5 ML VIAL ONE (14:59)
[2020-07-05] MEDS ORDERED: ONDANSETRON HCL INJ/PF 4 MG/2 ML SDV ONE (14:59)
[2020-07-05] MEDS: CLINDAMYCIN 600 MG/D5W RTU 600 MG/50 ML RTUPB IV SCH (17:41)
[2020-07-05] MEDS: FAMOTIDINE INJ/PF 20 MG/2 ML SDV IV SCH ×2 (17:41→22:38)
[2020-07-05] MEDS ORDERED: KETOROLAC TROMETHAMINE INJ/PF 30 MG/1 ML SDV IV ONE (19:30)
[2020-07-05] MEDS: ACETAMINOPHEN 1,000 MG/100 ML RTUPB IV SCH (21:55)
[2020-07-05] MEDS ORDERED: CEFTRIAXONE 1 GM/D5W RTU 1 GM/50 ML RTUPB IV SCH (22:00)
[2020-07-06] MEDS: CLINDAMYCIN 600 MG/D5W RTU 600 MG/50 ML RTUPB IV SCH ×2 (00:03→06:33)
[2020-07-06] MEDS: KETOROLAC TROMETHAMINE INJ/PF 30 MG/1 ML SDV IV SCH ×2 (00:15→06:35)
[2020-07-06] MEDS: ACETAMINOPHEN 1,000 MG/100 ML RTUPB IV SCH ×2 (03:31→09:54)
[2020-07-06 07:01] LABS: ABSOLUTE LYMPHOCYTES (AUTO) 2.7 10^3/uL (0.5-4.7); ABSOLUTE MONOCYTES (AUTO) 1.1 10^3/uL (0.1-1.4); ABSOLUTE NEUT (AUTO) 10.9 10^3/uL (1.7-8.2); BASOPHILS % (AUTO) 0.3 % (0-2); EOSINOPHILS % (AUTO) 0.1 % (0-6); HEMATOCRIT 34.6 % (36.0-47.0); HEMOGLOBIN 11.7 g/dL (12.0-15.5); LYMPHOCYTES % (AUTO) 18.5 % (13-45); MEAN CORPUSCULAR HEMOGLOBIN 29.3 pg (27.0-33.4); MEAN CORPUSCULAR HGB CONC 33.7 g/dL (32.0-36.0); MEAN CORPUSCULAR VOLUME 87 fl (80-97); MONOCYTES % (AUTO) 7.4 % (3-13); PLATELET COUNT 333 10^3/uL (150-450); RED BLOOD COUNT 3.98 10^6/uL (3.72-5.28); RED CELL DISTRIBUTION WIDTH 12.4 % (11.5-14.0); SEGMENTED NEUTROPHILS % (AUTO) 73.7 % (42-78); TOTAL CELLS COUNTED % (AUTO) 100 %; WHITE BLOOD COUNT 14.8 10^3/uL (4.0-10.5)
[2020-07-06 07:20] LABS: ANION GAP 8 (5-19); BLOOD UREA NITROGEN 7 mg/dL (7-20); CALCIUM 9.1 mg/dL (8.4-10.2); CARBON DIOXIDE 22 mmol/L (22-30); CHLORIDE 105 mmol/L (98-107); GLUCOSE 104 mg/dL (75-110); POTASSIUM 4.1 mmol/L (3.6-5.0)
--- NOTE | 2020-07-06 08:51 | PDOC DISCHARGE SUMMARY ---
General - Admit/Disc Date/PCP Admission Date/Primary Care Provider: 07/05/20 08:50 ISHA ROSSI Discharge Date: 07/06/20 - Discharge Diagnosis Final Diagnosis: ovarian cyst - Assessment Summary: Patient was admitted with acute onset abdominal pain thought to be appendicitis. She was taken to the operating room for laparoscopic appendectomy at which time the appendix was noted to be normal but she had a large right-sided ovarian cyst which was fenestrated in the operating room. Note On following day she was feeling much better tolerating a regular diet ready for discharge home. She will be followed up in surgical clinic in 7 to 10 days after discharge. - Additional Information Resuscitation Status: Full Code Discharge Diet: As Tolerated Discharge Activity: No Lifting Over 10 Pounds Referrals: JANNA ELLER MD [ACTIVE STAFF] - Follow up as needed Prescriptions: Hydrocodone/Acetaminophen [[place] 5-325 mg Tablet] 1 tab PO Q6HP PRN #10 tablet PRN Reason: Home Medications: Fluoxetine HCl [Prozac 20 mg Capsule] 20 mg PO DAILY 07/05/20 Hydrocodone/Acetaminophen [[place] 5-325 mg Tablet] 1 tab PO Q6HP PRN #10 tablet 07/06/20 History of Present Illiness History of Present Illness: ERNESTINE NG is a 20 year old female Physical Exam Vital Signs: Temp Pulse Resp BP Pulse Ox 98.3 F 75 16 126/69 H 100 07/06/20 07:18 07/06/20 07:18 07/06/20 07:18 07/06/20 07:18 07/06/20 07:18 Intake & Output 07/05/20 07/06/20 07/07/20 06:59 06:59 06:59 Intake Total 2150 Balance 2150 Weight 86.8 kg Results Laboratory Results: WBC 14.8 10^3/uL (4.0-10.5) H 07/06/20 06:40 RBC 3.98 10^6/uL (3.72-5.28) 07/06/20 06:40 Hgb 11.7 g/dL (12.0-15.5) L 07/06/20 06:40 Hct 34.6 % (36.0-47.0) L 07/06/20 06:40 MCV 87 fl (80-97) 07/06/20 06:40 MCH 29.3 pg (27.0-33.4) 07/06/20 06:40 MCHC 33.7 g/dL (32.0-36.0) 07/06/20 06:40 RDW 12.4 % (11.5-14.0) 07/06/20 06:40 Plt Count 333 10^3/uL (150-450) 07/06/20 06:40 Lymph % (Auto) 18.5 % (13-45) 07/06/20 06:40 [place] % (Auto) 7.4 % (3-13) 07/06/20 06:40 Eos % (Auto) 0.1 % (0-6) 07/06/20 06:40 Baso % (Auto) 0.3 % (0-2) 07/06/20 06:40 Absolute Neuts (auto) 10.9 10^3/uL (1.7-8.2) H 07/06/20 06:40 Absolute Lymphs (auto) 2.7 10^3/uL (0.5-4.7) 07/06/20 06:40 Absolute Monos (auto) 1.1 10^3/uL (0.1-1.4) 07/06/20 06:40 Absolute Eos (auto) 0.0 10^3/uL (0.0-0.6) 07/06/20 06:40 Absolute Basos (auto) 0.0 10^3/uL (0.0-0.2) 07/06/20 06:40 Seg Neutrophils % 73.7 % (42-78) 07/06/20 06:40 Sodium 135.2 mmol/L (137-145) L 07/06/20 06:40 Potassium 4.1 mmol/L (3.6-5.0) 07/06/20 06:40 Chloride 105 mmol/L (98-107) 07/06/20 06:40 Carbon Dioxide 22 mmol/L (22-30) 07/06/20 06:40 Anion Gap 8 (5-19) 07/06/20 06:40 BUN 7 mg/dL (7-20) 07/06/20 06:40 Creatinine 0.50 mg/dL (0.52-1.25) L 07/06/20 06:40 Est GFR ( Amer) > 60 (>60) 07/06/20 06:40 Est GFR (MDRD) Non-Af > 60 (>60) 07/06/20 06:40 Glucose 104 mg/dL (75-110) 07/06/20 06:40 Calcium 9.1 mg/dL (8.4-10.2) 07/06/20 06:40 Total Bilirubin 0.5 mg/dL (0.2-1.3) 07/04/20 22:02 Direct Bilirubin 0.2 mg/dL (0.0-0.4) 07/04/20 22:02 Neonat Total Bilirubin Not Reportable 07/04/20 22:02 Neonat Direct Bilirubin Not Reportable 07/04/20 22:02 Neonat Indirect Bili Not Reportable 07/04/20 22:02 AST 24 U/L (14-36) 07/04/20 22:02 ALT 15 U/L (<35) 07/04/20 22:02 Alkaline Phosphatase 99 U/L (38-126) 07/04/20 22:02 Total Protein 8.0 g/dL (6.3-8.2) 07/04/20 22:02 Albumin 4.7 g/dL (3.5-5.0) 07/04/20 22:02 Serum HCG, Qual NEGATIVE (NEGATIVE) 07/04/20 22:02 Urine Color YELLOW 07/04/20 21:20 Urine Appearance CLEAR 07/04/20 21:20 Urine pH 6.0 (5.0-9.0) 07/04/20 21:20 Ur Specific [place] 1.020 07/04/20 21:20 Urine Protein NEGATIVE mg/dL (NEGATIVE) 07/04/20 21:20 Urine Glucose (UA) NEGATIVE mg/dL (NEGATIVE) 07/04/20 21:20 Urine Ketones 80 mg/dL (NEGATIVE) H 07/04/20 21:20 Urine Blood NEGATIVE (NEGATIVE) 07/04/20 21:20 Urine Nitrite NEGATIVE (NEGATIVE) 07/04/20 21:20 Urine Bilirubin NEGATIVE (NEGATIVE) 07/04/20 21:20 Urine Urobilinogen NEGATIVE mg/dL (<2.0) 07/04/20 21:20 Ur Leukocyte Esterase NEGATIVE (NEGATIVE) 07/04/20 21:20 Urine WBC (Auto) 2 /HPF 07/04/20 21:20 Urine RBC (Auto) 2 /HPF 07/04/20 21:20 Urine Bacteria (Auto) 3+ /HPF 07/04/20 21:20 Squamous Epi Cells Auto 1 /HPF 07/04/20 21:20 Urine Mucus (Auto) OCC /LPF 07/04/20 21:20 Urine Ascorbic Acid NEGATIVE (NEGATIVE) 07/04/20 21:20 Influenza A (RT-PCR) NEGATIVE (NEGATIVE) 07/05/20 08:46 Influenza B (RT-PCR) NEGATIVE (NEGATIVE) 07/05/20 08:46 RSV (RT-PCR) NEGATIVE (NEGATIVE) 07/05/20 08:46 SARS-CoV-2 Rap RNA(RT-PCR) NEGATIVE (NEGATIVE) 07/05/20 08:46 Impressions: Transvaginal US 07/04/20 20:47 IMPRESSION: Unremarkable exam. Abdomen/Pelvis CT 07/05/20 01:41 IMPRESSION: No definite acute inflammatory process.
[2020-07-06 09:28] VITALS: BP 116/61
[2020-07-06] MEDS ORDERED: ENOXAPARIN SODIUM INJ 40 MG/0.4 ML DISP.SYRIN SUBCUT SCH (10:00)
== END 2020-07-06 10:14 | disposition home or self-care (01) ==
LOC: ER 17:56 → EH 07-05 08:50 → 2N 07-05 14:24
PROVIDERS: ATTEND Surgery
DX: N83.201 Unspecified ovarian cyst, right side (principal); R10.31 Right lower quadrant pain; R11.0 Nausea; R19.7 Diarrhea, unspecified; D72.829 Elevated white blood cell count, unspecified; E66.9 Obesity, unspecified; Z01.812 Encounter for preprocedural laboratory examination; Z20.828 Contact with and (suspected) exposure to other viral communicable diseases; Z20.822 Contact with and (suspected) exposure to COVID-19; Z97.5 Presence of (intrauterine) contraceptive device; F32.9 Major depressive disorder, single episode, unspecified; R63.0 Anorexia
CPT/HCPCS: 96376; 99285; 96375; 96365; 96368; 36415 ×2; 84703; 85025 ×2; 0241U ×4; 80048; 80053; 81001; 88304 ×2; 76830; 93976; 74177; 94799; 00840; 44970; 49322; G0378 ×3; J2250; J3490 ×3; J1885 ×3; J3010 ×2; J2270; J2710; J2405; J7030; J2704; S0028; J0696; J0131 ×2; C9803; 840